=== PATIENT | male | born 1955 | race African-American/Black ===

== ENCOUNTER 2019-05-07 00:55 | Emergency (ER) | payer SELFPAY ==
[~2019-05-07] VITALS: Ht 182.9 cm; Wt 120.2 kg
[~2019-05-07 00:55] MED LIST: CHOL2000 PO; TRAM-48 PO
[2019-05-07] MEDS ORDERED: IV NORMAL SALINE 1000ML BAG 1,000 ML IV ONE (02:00)
[2019-05-07] MEDS ORDERED: IV NORMAL SALINE 1000ML BAG 1,000 ML IV SCH (02:00)
[2019-05-07 02:12] LABS: BASO % 0 % (0-3); EOS # 0.2 x10^3/uL (0.0-0.7); EOS % 3 % (0-3); HEMATOCRIT 39.2 % (39.0-53.0); HEMOGLOBIN 12.7 g/dL (13.0-17.5); LYMPH # 2.1 x10^3/uL (1.0-4.8); LYMPH % 32 % (24-48); MEAN CORPUSCULAR HEMOGLOBIN 26 pg (25-35); MEAN CORPUSCULAR HGB CONC 33 g/dL (31-37); MEAN CORPUSCULAR VOLUME 80 fL (79-100); MONO # 0.5 x10^3/uL (0.0-1.1); MONO % 8 % (0-9); NEUT # 3.7 x10^3/uL (1.8-7.7); NEUT % 57 % (31-73); PLATELET COUNT 165 x10^3/uL (140-400); RED BLOOD COUNT 4.88 x10^6/uL (4.30-5.70); RED CELL DISTRIBUTION WIDTH 13.5 % (11.5-14.5); WHITE BLOOD COUNT 6.4 x10^3/uL (4.0-11.0)
[2019-05-07] MEDS ORDERED: IPRATRPIUM/ALBUTEROL 0.5/2.5MG 3 ML NEBU. ONE (02:16)
[2019-05-07 02:19] LABS: CALCIUM 8.2 mg/dL (8.5-10.1); CREATININE 0.9 mg/dL (0.7-1.3); GFR 102.8
[2019-05-07 02:20] LABS: PROTHROMBIN TIME PATIENT 13.9 SEC (11.7-14.0)
[2019-05-07 02:25] LABS: ALBUMIN 3.3 g/dL (3.4-5.0); DIRECT BILIRUBIN 0.1 mg/dL (0.0-0.2); MAGNESIUM 1.7 mg/dL (1.8-2.4); TOTAL BILIRUBIN 0.3 mg/dL (0.2-1.0); TOTAL PROTEIN 7.1 g/dL (6.4-8.2)
[2019-05-07] MEDS ORDERED: IPRATRPIUM/ALBUTEROL 0.5/2.5MG 3 ML NEBU. NEB ONE (02:30)
--- NOTE | 2019-05-07 02:52 | RAD ---
Study: PORTABLE CHEST 1V Indication: Shortness of air. Comparison: 09/05/2016. Findings: Similar configuration of the cardiomediastinal silhouette and dorinda relative to the 2017 comparison with persistent mild prominence. No lobar infiltrate, pneumothorax or pleural effusion Impression: Unchanged mild prominence of the cardiomediastinal silhouette and hilar structures without findings of overt failure. Electronically signed by: ALBIN HEBERT MD (05/07/2019 2:49 AM) [facility]
[2019-05-07 03:31] LABS: BARBITURATES NEG (NEG); BENZODIAZEPINES NEG (NEG); CANNABINOIDS NEG (NEG); COCAINE NEG (NEG); METHADONE NEG (NEG); OPIATES NEG (NEG); PHENCYCLIDINE NEG (NEG)
[2019-05-07 03:40] LABS: AMPHETAMINE/METHAMPHETAMINE NEG (NEG)
--- NOTE | 2019-05-07 03:55 | PHYS DOC ---
Past Medical History Past Medical History: Arthritis Past Surgical History: Other Additional Past Surgical Histo: L KNEE Alcohol Use: None Drug Use: None Adult General Chief Complaint Chief Complaint: ALCOHOL INTOXICATION HPI HPI Patient is a 63 year old male who was brought here by EMS from the [facility] after he fell off the stool and hit his head on the ground became unresponsive. He was acting like he has had a seizure when he was on the ground. Patient had been drinking tonight at the [facility]. Upon arrival to here patient denies any chest pain, no neck pain, no abdominal pain, no nausea vomiting.. He admitted to drinking alcohol. HIS SAID HE HAS BEEN DRINKING ALCOHOL HEAVILY DAILY. He has passed out in the past due to drinking. All other ROS is negative unless otherwise noted in HPI Review of Systems Review of Systems See above Current Medications Current Medications Current Medications Medications (Trade) Dose Ordered Sig/Izaiah Start Time Stop Time Status Last Admin Dose Admin Albuterol/ Ipratropium (Duoneb) 3 ml STK-MED ONCE 05/07/19 02:16 05/07/19 02:16 DC Sodium Chloride 1,000 ml @ 1,000 mls/hr 1X ONCE 05/07/19 02:00 05/07/19 02:59 DC 05/07/19 02:00 1,000 MLS/HR Allergies Allergies Allergies Coded Allergies Type Severity Reaction Last Updated Verified No Known Drug Allergies 09/05/16 No Physical Exam Physical Exam See above Constitutional: Well developed, well nourished, no acute distress, non-toxic appearance. [] HENT: Normocephalic, atraumatic, bilateral external ears normal, oropharynx moist, no oral exudates, nose normal. [] Eyes: PERRLA, EOMI, conjunctiva normal, no discharge. [] Neck: Normal range of motion, no tenderness, supple, no stridor. [] Cardiovascular:Heart rate regular rhythm, no murmur [] Lungs & Thorax: Bilateral breath sounds clear to auscultation [] Abdomen: Bowel sounds normal, soft, no tenderness, no masses, no pulsatile masses. [] Skin: Warm, dry, no erythema, no rash. [] Back: No tenderness, no CVA tenderness. [] Extremities: No tenderness, no cyanosis, no clubbing, ROM intact, no edema. [] Neurologic: Alert and oriented X 3, normal motor function, normal sensory f unction, no focal deficits noted. [] Psychologic: Affect normal, judgement normal, mood normal. [] Current Patient Data Vital Signs Vital Signs Date Time Temp Pulse Resp B/P (MAP) Pulse Ox O2 Delivery O2 Flow Rate FiO2 05/07/19 02:18 94 Nasal Cannula 2.0 05/07/19 00:56 97.7 90 20 143/90 (107) 97.7 Lab Values Laboratory Tests Test 05/07/19 02:00 05/07/19 03:17 White Blood Count 6.4 x10^3/uL (4.0-11.0) Red Blood Count 4.88 x10^6/uL (4.30-5.70) Hemoglobin 12.7 g/dL (13.0-17.5) L Hematocrit 39.2 % (39.0-53.0) Mean Corpuscular Volume 80 fL (79-100) Mean Corpuscular Hemoglobin 26 pg (25-35) Mean Corpuscular Hemoglobin Concent 33 g/dL (31-37) Red Cell Distribution Width 13.5 % (11.5-14.5) Platelet Count 165 x10^3/uL (140-400) Neutrophils (%) (Auto) 57 % (31-73) Lymphocytes (%) (Auto) 32 % (24-48) Monocytes (%) (Auto) 8 % (0-9) Eosinophils (%) (Auto) 3 % (0-3) Basophils (%) (Auto) 0 % (0-3) Neutrophils # (Auto) 3.7 x10^3/uL (1.8-7.7) Lymphocytes # (Auto) 2.1 x10^3/uL (1.0-4.8) Monocytes # (Auto) 0.5 x10^3/uL (0.0-1.1) Eosinophils # (Auto) 0.2 x10^3/uL (0.0-0.7) Basophils # (Auto) 0.0 x10^3/uL (0.0-0.2) Prothrombin Time 13.9 SEC (11.7-14.0) Prothrombin Time INR 1.1 (0.8-1.1) Sodium Level 132 mmol/L (136-145) L Potassium Level 4.0 mmol/L (3.5-5.1) Chloride Level 97 mmol/L (98-107) L Carbon Dioxide Level 19 mmol/L (21-32) L Anion Gap 16 (6-14) H Blood Urea Nitrogen 15 mg/dL (8-26) Creatinine 0.9 mg/dL (0.7-1.3) Estimated GFR (Cockcroft-Gault) 102.8 Glucose Level 107 mg/dL (70-99) H Calcium Level 8.2 mg/dL (8.5-10.1) L Magnesium Level 1.7 mg/dL (1.8-2.4) L Total Bilirubin 0.3 mg/dL (0.2-1.0) Direct Bilirubin 0.1 mg/dL (0.0-0.2) Aspartate Amino Transferase (AST) 24 U/L (15-37) Alanine Aminotransferase (ALT) 41 U/L (16-63) Alkaline Phosphatase 75 U/L (46-116) Troponin I Quantitative < 0.017 ng/mL (0.000-0.055) Total Protein 7.1 g/dL (6.4-8.2) Albumin 3.3 g/dL (3.4-5.0) L Ethyl Alcohol Level 223 mg/dL (0-10) H Urine Opiates Screen Neg (NEG) Urine Methadone Screen Neg (NEG) Urine Barbiturates Neg (NEG) Urine Phencyclidine Screen Neg (NEG) Urine Amphetamine/Methamphetamine Neg (NEG) Urine Benzodiazepines Screen Neg (NEG) Urine Cocaine Screen Neg (NEG) Urine Cannabinoids Screen Neg (NEG) Urine Ethyl Alcohol Pos (NEG) Laboratory Tests 05/07/19 02:00 Laboratory Tests 05/07/19 02:00 EKG EKG ekg was read by this physician at 0130, rate of 86 bpm, no stemi. NSR. [] Radiology/Procedures Radiology/Procedures [][facility] [address] [place], [place] [id number] IMAGING REPORT Signed PATIENT: HOLLY WISDOM ACCOUNT: [id number] : 1955 LOCATION: ER AGE: 63 SEX: M EXAM STATUS: REG ER ORD. PHYSICIAN: RIVERA,PETER T DO REASON: INTOXICATED, FELL OUT OF THE CHAIR AT THE [facility] PROCEDURE: CT HEAD AND CERVICAL SPINE WO STUDY: CT head and cervical spine without contrast INDICATION: Intoxication. Fall. COMPARISON: None. TECHNIQUE: Axial CT imaging through the head and cervical spine without the use of intravenous contrast. Sagittal and coronal reformats were obtained. One or more of the following individualized dose reduction techniques were utilized for this examination: 1. Automated exposure control 2. Adjustment of the mA and/or kV according to patient size 3. Use of iterative reconstruction technique. FINDINGS: CT head: No acute intracranial hemorrhage. No mass effect, midline shift or hydrocephalus. Leroy-white matter differentiation is maintained. No large scalp hematoma. No acute findings involving the globes or retrobulbar soft tissues. The calvarium is intact. Opacification of the right more so than left maxillary sinuses with frothy secretions. Ethmoidal and frontal mucosal thickening. No fluid within the sphenoid sinus. The visualized surrounding fascial bones are intact. Mucoperiosteal thickening along the right maxillary antrum in keeping with chronic inflammation. CT cervical spine: Degraded evaluation below C4 due to beam attenuation. Slight severe endplate concavity at T3 and T4 appears chronic. No suspicious vertebral body height loss. No traumatic malalignment across the vertebral bodies or posterior elements. Multifactorial degenerative changes. Resultant bony neural foraminal encroachment is most pronounced on the left at C6-C7. Probable mild central canal narrowing noting limited evaluation below C4-C5. No prevertebral edema or dorsal paraspinous hematoma. Unremarkable thyroid. No apical pneumothorax. Sequela of a remote granulomatous process. Retropharyngeal course of both internal carotid arteries. IMPRESSION: CT head: 1. No acute intracranial abnormality by CT. 2. Findings as can be seen with acute on chronic sinusitis as detailed above. Correlate clinically. CT cervical spine: 1. Degraded evaluation below C4-C5 due to beam attenuation. Taking this into consideration, no acute fracture or malalignment. 2. Multifactorial degenerative changes that are most notable at C6-C7. Electronically signed by: ALBIN HEBERT MD (05/07/2019 4:48 AM) [facility] DICTATED and SIGNED BY: ALBIN HEBERT MD DATE: 05/07/19 0448 Course & Med Decision Making Course & Med Decision Making Pertinent Labs and Imaging studies reviewed. (See chart for details) Patient was able to walk in the ER without any problem Patient wanted to be released home. Dragon Disclaimer Dragon Disclaimer This electronic medical record was generated, in whole or in part, using a voice recognition dictation system. Departure Departure Impression: Primary Impression: Alcohol intoxication Additional Impression: Sinusitis Disposition: 01 HOME, SELF-CARE Condition: STABLE Referrals: LIZETTE MATUTE (PCP) FOLLOW UP WITH YOUR DOCTOR NEXT WEEK Patient Instructions: Alcohol Intoxication, Sinusitis Scripts Amoxicillin/Potassium Clav (AUGMENTIN 875-125 TABLET) 1 Each Tablet 1 TAB PO BID for 10 Days, #20 TAB 0 Refills Prov: AMERICO RIVERA DO 05/07/19 Problem Qualifiers AMERICO RIVERA DO May 07, 2019 03:55
--- NOTE | 2019-05-07 04:51 | RAD ---
STUDY: CT head and cervical spine without contrast INDICATION: Intoxication. Fall. COMPARISON: None. TECHNIQUE: Axial CT imaging through the head and cervical spine without the use of intravenous contrast. Sagittal and coronal reformats were obtained. One or more of the following individualized dose reduction techniques were utilized for this examination: 1. Automated exposure control 2. Adjustment of the mA and/or kV according to patient size 3. Use of iterative reconstruction technique. FINDINGS: CT head: No acute intracranial hemorrhage. No mass effect, midline shift or hydrocephalus. Leroy-white matter differentiation is maintained. No large scalp hematoma. No acute findings involving the globes or retrobulbar soft tissues. The calvarium is intact. Opacification of the right more so than left maxillary sinuses with frothy secretions. Ethmoidal and frontal mucosal thickening. No fluid within the sphenoid sinus. The visualized surrounding fascial bones are intact. Mucoperiosteal thickening along the right maxillary antrum in keeping with chronic inflammation. CT cervical spine: Degraded evaluation below C4 due to beam attenuation. Slight severe endplate concavity at T3 and T4 appears chronic. No suspicious vertebral body height loss. No traumatic malalignment across the vertebral bodies or posterior elements. Multifactorial degenerative changes. Resultant bony neural foraminal encroachment is most pronounced on the left at C6-C7. Probable mild central canal narrowing noting limited evaluation below C4-C5. No prevertebral edema or dorsal paraspinous hematoma. Unremarkable thyroid. No apical pneumothorax. Sequela of a remote granulomatous process. Retropharyngeal course of both internal carotid arteries. IMPRESSION: CT head: 1. No acute intracranial abnormality by CT. 2. Findings as can be seen with acute on chronic sinusitis as detailed above. Correlate clinically. CT cervical spine: 1. Degraded evaluation below C4-C5 due to beam attenuation. Taking this into consideration, no acute fracture or malalignment. 2. Multifactorial degenerative changes that are most notable at C6-C7. Electronically signed by: ALBIN HEBERT MD (05/07/2019 4:48 AM) [facility]
[2019-05-07 05:04] VITALS: BP 159/102
[2019-05-07] MEDS ORDERED: AMOX1TAB61 PO (05:05)
--- NOTE | 2019-05-09 07:32 | EKG ---
[facility] [address] [place] [address] Test Date: 2019-05-07 Test Time: 01:29:32 Pat Name: HOLLY WISDOM Department: Room: Gender: Nail Feeder: [id number] : 1955 Requested By: AMERICO RIVERA Order Number: [id number] Reading MD: Measurements Intervals [place] Rate: 86 P: 59 [place]: 158 QRS: -24 QRSD: 78 T: 16 QT: 346 QTc: 417 Interpretive Statements No previous ECG available for comparison
== END 2019-05-07 05:10 | disposition home or self-care (01) ==
LOC: ER 00:55
DX: F10.229 Alcohol dependence with intoxication, unspecified (principal); J32.9 Chronic sinusitis, unspecified; R55 Syncope and collapse; M19.90 Unspecified osteoarthritis, unspecified site; Z98.890 Other specified postprocedural states; Y90.7 Blood alcohol level of 200-239 mg/100 ml
CPT/HCPCS: 36415; 70450; 71045; 72125; 80048; 80076; 80307; 83735; 84484; 85025; 85610; 93005; 94640; 96360; 99285; G0480; J7030; J7620